=== PATIENT | male | born 1975 | race Caucasian/White ===

== ENCOUNTER 2018-03-11 14:40 | Emergency (ER) | payer MEDICAID ==
[~2018-03-11] VITALS: Ht 175.3 cm; Wt 88.6 kg
[2018-03-11 14:57] VITALS: Ht 175.3 cm; Wt 88.6 kg
[2018-03-11] MEDS ORDERED: COMPAZINE10 MG PO (15:51)
[2018-03-11] MEDS ORDERED: VISTARIL25 MG PO (15:51)
[2018-03-11 16:16] VITALS: BP 123/95
== END 2018-03-11 16:15 | disposition home or self-care (01) ==
LOC: D.ER 14:40
DX: F41.9 Anxiety disorder, unspecified (principal); F32.9 Major depressive disorder, single episode, unspecified; F17.200 Nicotine dependence, unspecified, uncomplicated